=== PATIENT | female | born 1945 | race Caucasian/White ===

== ENCOUNTER 2017-04-30 20:35 | Emergency (ER) | payer MEDICARE, OTHER ==
[~2017-04-30] VITALS: Ht 165.1 cm; Wt 122.5 kg
[~2017-04-30 20:35] MED LIST: AMOX500C2 PO; AZITTAB6 PO; HYDR-2551 PO; HYDR12.56 PO; PRED-188 PO; TELM40TA11 PO
[2017-05-01 00:50] LABS: Basophils # (auto) 0 uL; Basophils % (auto) 0.2 % (0.0-2.0); CONDITION Y; Eosinophils # (auto) 0.1 uL; Eosinophils % (auto) 0.8 % (0.0-7.0); Hematocrit 42.2 % (36.0-46.0); Hemoglobin 13.8 g/dL (12.2-16.2); Lymphocytes # (auto) 3.2 uL; Lymphocytes % (auto) 25.7 % (10.0-50.0); Mean Corpuscular Hemoglobin 27.2 pg (28.0-32.0); Mean Corpuscular Hgb Conc. 32.8 g/dL (32.0-36.0); Mean Platelet Volume 9.1 fL (7.4-10.4); Monocytes # (auto) 0.8 uL; Monocytes % (auto) 6.2 % (0.0-12.0); Neutrophils # (auto) 8.3 uL; Neutrophils % (auto) 67.1 % (37.0-80.0); Platelet Count (auto) 396 10^3/uL (140-450); Red Cell Distribution Width 16.5 % (11.6-16.0); White Blood Cell 12.4 10^3/uL (4.4-10.8)
[2017-05-01 01:33] LABS: Urine Bilirubin Negative (Negative); Urine Blood Negative /uL (Negative); Urine Color Yellow (Yellow); Urine Glucose Normal (Normal); Urine Ketone Negative (Negative); Urine Mucus FEW (None Seen); Urine Nitrite Negative (Negative); Urine RBC 11 /hpf (0 - 4); Urine Squamous Epithelial Cell FEW /hpf (<5); Urine Urobilinogen Normal (Negative)
[2017-05-01] MEDS ORDERED: metroNIDAZOLE 500 MG TAB PO ONE (02:30)
[2017-05-01] MEDS ORDERED: FAMOTIDINE (10MG/ML) 2ML VL IV ONE (02:30)
[2017-05-01] MEDS ORDERED: ONDANSETRON HCL 4 MG/2 ML VIAL IV ONE (02:30)
[2017-05-01 02:40] VITALS: BP 131/60
[2017-05-01 03:01] LABS: Albumin 3.5 g/dL (3.4-5.0); Alkaline Phosphatase 95 U/L (45-117); Anion Gap 9 (5-15); Aspartate Aminotransferase 24 U/L (15-37); BUN/Creatinine Ratio 23.8; Bilirubin, Total 0.4 mg/dL (0.2-1.0); Blood Urea Nitrogen 19 mg/dL (7-18); Calcium 8.8 mg/dL (8.5-10.1); Carbon Dioxide 29 mmol/L (21-32); Chloride 102 mmol/L (98-107); GFR African American 91 mL/min; GFR Non-African American 75 mL/min; Glucose 102 mg/dL (74-106); Potassium 3.5 mmol/L (3.5-5.1); Sodium 140 mmol/L (136-145); Total Protein 8.1 g/dL (6.4-8.2)
== END 2017-05-01 04:25 | disposition home or self-care (01) ==
LOC: ER 20:38
DX: K25.9 Gastric ulcer, unspecified as acute or chronic, without hemorrhage or perforation (principal); B96.81 Helicobacter pylori [H. pylori] as the cause of diseases classified elsewhere; I10 Essential (primary) hypertension; Z90.49 Acquired absence of other specified parts of digestive tract; Z88.1 Allergy status to other antibiotic agents; Z88.6 Allergy status to analgesic agent
CPT/HCPCS: 36415; 74176; 80053; 81001; 84484; 85025; 86677; 96374; 96375; 99285; J2405; J3490

== ENCOUNTER 2021-10-02 15:17 | Emergency (ER) | payer MEDICARE, OTHER ==
[~2021-10-02] VITALS: Ht 165.1 cm; Wt 104.3 kg
[2021-10-02] MEDS ORDERED: PROMETHAZINE HCL 25 MG/ML 1ML IM ONE (16:00)
[2021-10-02] MEDS ORDERED: MEPERIDINE HCL (50 MG/ML) 1 ML VIAL IM ONE (16:00)
[2021-10-02] MEDS ORDERED: PRED20TA2 PO (17:09)
[2021-10-02] MEDS ORDERED: HYDR-4902 PO (17:10)
[2021-10-02 17:20] VITALS: BP 153/57
== END 2021-10-02 17:21 | disposition home or self-care (01) ==
LOC: ER 15:17
DX: M48.061 Spinal stenosis, lumbar region without neurogenic claudication (principal); M54.16 Radiculopathy, lumbar region; G89.29 Other chronic pain; M54.50 Low back pain, unspecified; I10 Essential (primary) hypertension; K21.9 Gastro-esophageal reflux disease without esophagitis; Z79.2 Long term (current) use of antibiotics; Z79.899 Other long term (current) drug therapy; Z88.1 Allergy status to other antibiotic agents; Z88.5 Allergy status to narcotic agent
CPT/HCPCS: 72131; 96372; 99284; J2175; J2550

== ENCOUNTER 2024-03-16 11:54 | Inpatient (IN) | payer MEDICARE, OTHER ==
[~2024-03-16] VITALS: Ht 165.1 cm; Wt 113.0 kg
[~2024-03-16 11:54] MED LIST changes: +HYDR-4902 PO; -HYDR12.56 PO; +HYDR12.59 PO; +PRED20TA2 PO
[2024-03-16] MEDS: SODIUM CHLORIDE 0.9% 1,000 ML IV ONE ×2 (13:25→14:38)
[2024-03-16 13:31] LABS: Basophils # (auto) 0.1 10 ^3/uL (0-0.2); Basophils % (auto) 0.8 % (0.0-2.0); Eosinophils # (auto) 0 10 ^3/uL (0-0.8); Eosinophils % (auto) 0.4 % (0.0-7.0); Hematocrit 42.9 % (36.0-46.0); Lymphocytes # (auto) 1.7 10 ^3/uL (0.4-5.4); Lymphocytes % (auto) 17.2 % (10.0-50.0); Mean Corpuscular Hemoglobin 27.4 pg (28.0-32.0); Mean Corpuscular Hgb Conc. 32.5 g/dL (32.0-36.0); Mean Corpuscular Volume 84.1 fL (80.0-100.0); Monocytes # (auto) 0.5 10 ^3/uL (0-1.3); Monocytes % (auto) 5.2 % (0.0-12.0); Neutrophils # (auto) 7.7 10 ^3/uL (1.6-8.6); Neutrophils % (auto) 76.4 % (37.0-80.0); Nucleated Red Blood Cells % 0.1 %; Red Cell Distribution Width 15.7 % (11.8-14.3); White Blood Cell 10.1 10^3/uL (4.4-10.8)
[2024-03-16 13:48] VITALS: PULSE 75; RESP 20; O2SAT 95
[2024-03-16 13:53] LABS: Alanine Aminotransferase 24 U/L (7-40); Albumin 4.4 g/dL (3.2-4.8); Alkaline Phosphatase 127 U/L (46-116); Anion Gap 6 (5-15); Aspartate Aminotransferase 28 U/L (13-40); BUN/Creatinine Ratio 18.1 (10.0-20.0); Blood Urea Nitrogen 25 mg/dL (9-23); Calcium 10.4 mg/dL (8.7-10.4); Carbon Dioxide 29 mmol/L (20-30); Chloride 89 mmol/L (98-107); Sodium 124 mmol/L (136-145)
[2024-03-16 13:54] LABS: Bilirubin, Total 0.7 mg/dL (0.2-1.0); Total Protein 7.7 g/dL (5.7-8.2)
[2024-03-16 14:00] LABS: Glucose 627 mg/dL (74-106); Potassium 5.8 mmol/L (3.5-5.1)
[2024-03-16] MEDS ORDERED: InsuLIN REG 1unit/0.01ml Soln (100units/ml) SC ONE (14:30)
[2024-03-16] MEDS: InsuLIN REG 1unit/0.01ml Soln (100units/ml) IV ONE (14:54)
[2024-03-16 16:03] VITALS: PULSE 75; RESP 20; O2SAT 95
[2024-03-16] MEDS ORDERED: DEXTROSE (50%) 50ML SYRG IV PRN (18:15)
[2024-03-16] MEDS ORDERED: ONDANSETRON HCL 4 MG/2 ML VIAL IV PRN (18:15)
[2024-03-16] MEDS: CALCIUM GLUC 1,000mg/50ml-NS 50 ML IV ONE (18:45)
[2024-03-16] MEDS: SODIUM BICARB 8.4% 50Meq/50ml SYR Vial IV ONE (18:54)
[2024-03-16] MEDS: SODIUM ZIRCONIUM CYCL 10 GM PAK PO ONE (18:55)
[2024-03-16 19:30] VITALS: PULSE 84; RESP 25; O2SAT 94
[2024-03-16] MEDS: ACCU-CHEK COMFORT CURVE STRIP VI SCH (20:00)
[2024-03-16] MEDS: InsuLIN REG 1unit/0.01ml Soln (100units/ml) SC SCH (20:00)
[2024-03-16] MEDS: SOD CHL 0.45% 1,000 ML IV SCH (21:15)
[2024-03-16] MEDS: SODIUM CHLORIDE 0.9% 500 ML IV ONE (21:35)
[2024-03-16 22:58] VITALS: BP 149/70; PULSE 78; RESP 17; TEMP 98.4; O2SAT 94
[2024-03-16] MEDS ORDERED: HYDR25TA4 PO (23:08)
[2024-03-16] MEDS ORDERED: MONT-8 PO (23:08)
[2024-03-16] MEDS ORDERED: METF-370 PO (23:08)
[2024-03-16] MEDS ORDERED: TRAM50TA2 PO (23:08)
[2024-03-16] MEDS ORDERED: EZET10TA22 PO (23:08)
[2024-03-16] MEDS: MONTELUKAST SODIUM 10 MG TAB PO SCH (23:27)
[2024-03-17] VITALS (7 sets, daily range): BP systolic 101–155; BP diastolic 29–74; PULSE 69–78; RESP 18; TEMP 98–98.3; O2SAT 94–96
[2024-03-17 06:32] LABS: Anion Gap 8 (5-15); Carbon Dioxide 29 mmol/L (20-30); Chloride 97 mmol/L (98-107); Potassium 3.6 mmol/L (3.5-5.1)
[2024-03-17 06:34] LABS: Calcium 9.5 mg/dL (8.7-10.4)
[2024-03-17 06:38] LABS: Glucose 97 mg/dL (74-106)
[2024-03-17 06:39] LABS: BUN/Creatinine Ratio 26.5 (10.0-20.0); Blood Urea Nitrogen 26 mg/dL (9-23)
[2024-03-17 06:52] LABS: Sodium 134 mmol/L (136-145)
[2024-03-17] MEDS ORDERED: LOSARTAN POTASSIUM 50 MG TAB PO SCH (10:00)
[2024-03-17] MEDS: EMPAGLIFLOZIN 10 MG TAB PO SCH (12:18)
[2024-03-17 14:30] LABS: Urine Bacteria MOD /hpf (None Seen); Urine Blood Negative /uL (Negative); Urine Clarity Clear (Clear); Urine Color Light-Yellow (Yellow); Urine Protein, UAD Negative (Negative); Urine Urobilinogen Normal (Negative); Urine WBC 1 /hpf (0 - 5)
[2024-03-17] MEDS: VALSARTAN 80 MG TAB PO ONE (14:54)
[2024-03-17] MEDS: metFORMIN HYDROCHLORIDE 500 MG TAB PO ONE (14:55)
[2024-03-17] MEDS: hydroCHLOROthiazide 25 MG TAB PO ONE (14:56)
[2024-03-17 16:46] LABS: Chloride 95 mmol/L (98-107); Sodium 130 mmol/L (136-145)
[2024-03-17 16:47] LABS: Anion Gap 8 (5-15); Carbon Dioxide 27 mmol/L (20-30)
[2024-03-17 16:48] LABS: Calcium 9.3 mg/dL (8.7-10.4)
[2024-03-17 16:52] LABS: BUN/Creatinine Ratio 21.6 (10.0-20.0); Blood Urea Nitrogen 22 mg/dL (9-23)
[2024-03-17 17:09] LABS: Glucose 323 mg/dL (74-106)
[2024-03-18] VITALS (7 sets, daily range): BP systolic 114–128; BP diastolic 33–58; PULSE 64–77; RESP 18–20; TEMP 97.7–98.8; O2SAT 93–97
[2024-03-18] MEDS: traMADol HCL 50 MG TAB PO PRN (01:45)
[2024-03-18 06:14] LABS: Anion Gap 12 (5-15); Carbon Dioxide 24 mmol/L (20-30); Chloride 97 mmol/L (98-107); Potassium 3.4 mmol/L (3.5-5.1); Sodium 133 mmol/L (136-145)
[2024-03-18 06:20] LABS: BUN/Creatinine Ratio 18.8 (10.0-20.0); Blood Urea Nitrogen 19 mg/dL (9-23); Glucose 162 mg/dL (74-106)
[2024-03-18] MEDS: metFORMIN HYDROCHLORIDE 500 MG TAB PO SCH (09:10)
[2024-03-18] MEDS: VALSARTAN 80 MG TAB PO SCH (09:19)
[2024-03-18] MEDS ORDERED: hydroCHLOROthiazide 25 MG TAB PO SCH (10:00)
[2024-03-18] MEDS ORDERED: DEXTROSE (50%) 50ML SYRG IV PRN (11:45)
[2024-03-18] MEDS: InsuLIN REG 1unit/0.01ml Soln (100units/ml) SC SCH ×3 (13:05→22:04)
[2024-03-18] MEDS: ACCU-CHEK COMFORT CURVE STRIP VI SCH (13:05)
[2024-03-19] VITALS (7 sets, daily range): BP systolic 109–135; BP diastolic 35–59; PULSE 63–80; RESP 16–19; TEMP 97.6–98.2; O2SAT 93–97
[2024-03-19 11:46] LABS: Calcium 9.3 mg/dL (8.7-10.4); Chloride 97 mmol/L (98-107); Potassium 4.2 mmol/L (3.5-5.1); Sodium 131 mmol/L (136-145)
[2024-03-19 11:47] LABS: Anion Gap 6 (5-15); Carbon Dioxide 28 mmol/L (20-30)
[2024-03-19 11:52] LABS: BUN/Creatinine Ratio 19.3 (10.0-20.0); Blood Urea Nitrogen 22 mg/dL (9-23); Glucose 317 mg/dL (74-106)
[2024-03-19] MEDS: DOCUSATE SOD 100 MG CAP PO PRN (22:51)
[2024-03-20] VITALS (8 sets, daily range): BP systolic 109–151; BP diastolic 40–65; PULSE 74–88; RESP 14–20; TEMP 97.8–98.8; O2SAT 93–98
[2024-03-20 05:12] LABS: Anion Gap 7 (5-15); Carbon Dioxide 27 mmol/L (20-30); Chloride 101 mmol/L (98-107); Potassium 3.8 mmol/L (3.5-5.1); Sodium 135 mmol/L (136-145)
[2024-03-20 05:13] LABS: Calcium 9.3 mg/dL (8.7-10.4)
[2024-03-20 05:18] LABS: BUN/Creatinine Ratio 21.7 (10.0-20.0); Blood Urea Nitrogen 23 mg/dL (9-23); Glucose 210 mg/dL (74-106)
[2024-03-21] VITALS (8 sets, daily range): BP systolic 123–146; BP diastolic 42–70; PULSE 71–86; RESP 19–24; TEMP 97.9–98.7; O2SAT 94–98
[2024-03-22 01:00] VITALS: BP 143/53; PULSE 66; RESP 20; TEMP 97.9; O2SAT 93
[2024-03-22 05:00] VITALS: BP 132/67; PULSE 81; RESP 20; TEMP 97.8; O2SAT 97
[2024-03-22 08:00] VITALS: PULSE 72; RESP 20; O2SAT 94
[2024-03-22 08:39] VITALS: BP 110/28; PULSE 72; RESP 20; TEMP 97.9; O2SAT 94
[2024-03-22] MEDS ORDERED: EMPA1TAB PO (10:24)
[2024-03-22] MEDS ORDERED: METF-490 PO (10:24)
[2024-03-22] MEDS: hydroCHLOROthiazide 25 MG TAB PO SCH (11:00)
[2024-03-22 12:34] VITALS: BP 131/61; PULSE 75; RESP 18; TEMP 98.3; O2SAT 95
[2024-03-22 15:28] VITALS: BP 114/64; TEMP 36.8
== END 2024-03-22 16:20 | disposition home health service (06) | DRG 637 ==
LOC: ER 11:54 → OVERFLOW 18:16 → WEST WING 22:33
PROVIDERS: ADMIT Nurse Practitioner; ATTEND Family Medicine
DX: E11.10 Type 2 diabetes mellitus with ketoacidosis without coma (principal); N17.0 Acute kidney failure with tubular necrosis; E87.1 Hypo-osmolality and hyponatremia; Z68.41 Body mass index [BMI] 40.0-44.9, adult; E86.9 Volume depletion, unspecified; E87.5 Hyperkalemia; I10 Essential (primary) hypertension; E86.0 Dehydration; K21.9 Gastro-esophageal reflux disease without esophagitis; E78.5 Hyperlipidemia, unspecified; E66.01 Morbid (severe) obesity due to excess calories; Z79.899 Other long term (current) drug therapy; Z79.4 Long term (current) use of insulin; Z91.199 Patient's noncompliance with other medical treatment and regimen due to unspecified reason
CPT/HCPCS: 36415; 36600; 80048; 80053; 81001; 82010; 82805; 82962; 83036; 83605; 84132; 84484; 85025; 96361; 96365; 96375; 97110; 97163; G0378; J1815

== ENCOUNTER 2024-12-05 23:53 | Emergency (ER) | payer MEDICARE, OTHER ==
[~2024-12-05] VITALS: Ht 165.1 cm; Wt 101.1 kg
[~2024-12-05 23:53] MED LIST changes: -AMOX500C2 PO; -AZITTAB6 PO; +EMPA1TAB PO; +EZET10TA22 PO; -HYDR-2551 PO; -HYDR-4902 PO; -HYDR12.59 PO; +HYDR25TA4 PO; +METF-370 PO; +METF-490 PO; +MONT-8 PO; -PRED-188 PO; -PRED20TA2 PO; +TRAM50TA2 PO
[2024-12-06] MEDS: HYDROcodone-ACET 10/325MG TAB PO ONE (01:00)
[2024-12-06] MEDS ORDERED: CEPH500C PO (01:09)
[2024-12-06] MEDS ORDERED: ACET500T58 PO (01:09)
--- NOTE | 2024-12-06 01:09 | ED.PDOC ---
History of Present Illness(SKN HPI Comments 79-YEAR-OLD FEMALE PRESENTS TO ER FOR WOUND CHECK. PATIENT PRESENTS TO ER WITH A 1 CM X 1 CM PARTIAL SKIN AVULSION TO RIGHT THUMB THAT SHE STATES OCCURRED AT 4:00 P.M. PRIOR TO ARRIVAL TO ER S/P HER RIGHT THUMB MAKING IMPACT WITH A VEGETABLE SLICER AT HOME AND PRESENTS TO ER TODAY FOR WOUND CHECK. SHE RATES HER CURRENT PAIN A 10/10 TO RIGHT THUMB WITHOUT RADIATION. DENIES USE OF MEDICATIONS FOR CURRENT SYMPTOMS AND STATES HE IS UNSURE WHEN HER LAST TETANUS SHOT WAS. DENIES NUMBNESS/TINGLING OR ANY FURTHER SYMPTOMS/COMPLAINTS Chief Complaint: Laceration Time Seen by MD: 00:16 Primary Care Provider: VALENTIN History of Present Illness: Nurses Notes, Medications, Allergies Allergies: Coded Allergies: Clindamycin (Verified Allergy, Mild, 02/10/10) Codeine (Verified Allergy, Unknown, 04/30/17) Home Meds Active Scripts Cephalexin Monohydrate (Cephalexin) 500 Mg Cap, 1 CAP PO BID for 7 Days, #14 CAP 0 Refills Prov:KIMBERLYN STANFORD 12/06/24 Acetaminophen (Acetaminophen) 500 Mg Tab, 500 MG PO Q4HPRN, #30 TAB 0 Refills Prov:KIMBERLYN STANFORD 12/06/24 Empagliflozin (Jardiance) 10 Mg Tab, 10 MG PO DAILY, #90 TAB Prov:LEVAR BLANCO MD 03/22/24 Metformin Hydrochloride (METFORMIN HCL ER) 1,000 Mg Tab, 1 TAB PO BID, #180 TAB 1 Refill Prov:LEVAR BLANCO MD 03/22/24 Reported Medications Ezetimibe (Zetia) 10 Mg Tab, 1 TAB PO DAILY, #30 TAB 5 Refills 03/16/24 Montelukast Sodium (MONTELUKAST SODIUM) 10 Mg Tab, 1 TAB PO DAILY, #30 TAB 5 Refills 03/16/24 Metformin Hydrochloride (Metformin Hcl) 500 Mg Tab, 1 TAB PO BID, #60 TAB 3 Refills 03/16/24 Tramadol Hcl (Tramadol Hcl) 50 Mg Tab, 50 MG PO PRN for PAIN SCALE 1 THRU 6, TAB 03/16/24 Hydrochlorothiazide (Hydrochlorothiazide) 25 Mg Tab, 1 TAB PO DAILY, #30 TAB 5 Refills 03/16/24 Telmisartan (Micardis) 40 Mg Tab, 40 MG PO DAILY, TAB 10/03/13 Information Source: Patient Mode of Arrival: Wheelchair Tetanus: Unknown Past Medical History PAST MEDICAL HISTORY: Arthritis, GERD, HTN Past Medical History (Other): ESSENTIAL TREMORS Surgical History: Cholecystectomy STRUCTURER History: No Pertinent STRUCTURER History Family History Family History (Other): Familial tremors Social History Smoker: Non-Smoker Alcohol: Denies ETOH Use Drugs: Denies Drug Use Lives In: Home Constitutional: denies: chills, diaphoresis, fatigue, fever, malaise, sweats, weakness, others EENTM: denies: blurred vision, double vision, ear bleeding, ear discharge, ear drainage, ear pain, ear ringing, eye pain, eye redness, hearing loss, mouth pain, mouth swelling, nasal discharge, nose bleeding, nose congestion, nose pain, photophobia, tearing, throat pain, throat swelling, voice changes, others Respiratory: denies: cough, hemoptysis, orthopnea, SOB at rest, shortness of breath, SOB with excertion, stridor, wheezing, others Cardiovascular: denies: chest pain, dizzy spells, diaphoresis, Dyspnea on exertion, edema, irregular heart beat, left arm pain, lightheadedness, palpitations, PND, syncope, others Gastrointestinal: denies: abdomen distended, abdominal pain, blood streaked bowels, constipated, diarrhea, dysphagia, difficulty swallowing, hematemesis, melena, nausea, poor appetite, poor fluid intake, rectal bleeding, rectal pain, vomiting, others Genitourinary: denies: abnormal vagina bleeding, burning, dyspareunia, dysuria, flank pain, frequency, hematuria, incontinence, pain, , vagina discharge, urgency, others Neurological: denies: dizziness, fainting, headache, left sided numbness, left sided weakness, numbness, paresthesia, pre-existing deficit, right sided numbness, right sided weakness, seizure, speech problems, tingling, tremors, weakness, others Musculoskeletal: denies: back pain, gout, joint pain, joint swelling, muscle pain, muscle stiffness, neck pain, others Integumetry: reports: others ( IN HPI) Allergic/Immunocompromised: denies: Difficulty Healing, Frequent Infections, Hives, Itching, others Hematologic/Lymphatic: denies: anemia, blood clots, easy bleeding, easy bruising, swollen glands, others Endocrine: denies: excessive hunger, excessive sweating, excessive thirst, excessive urination, flushing, intolerance to cold, intolerance to heat, unexplained weight gain, unexplained weight loss, others Psychiatric: denies: anxiety, bipolar disorder, depression, hopeless, panic disorder, schizophrenia, sleepless, suicidal, others Physical Exam General Appearance: No Apparent Distress, Obese HEENT: PERRL/EOMI Neck: Full Range of Motion, Non-Tender, Normal Respiratory: Chest Non-Tender, Lungs Clear, No Accessory Muscle Use, No Respiratory Distress, Normal Breath Sounds Cardiovascular: No Murmur, No Gallop, Regular Rate/Rhythm Breast Exam: Deferred Gastrointestinal: NOT DONE Genitalia: Deferred Pelvic: Deferred Rectal: Deferred Extremities: Normal capillary refill, Normal range of motion Neurologic: Alert, No Motor Deficits, Normal Affect, Normal Mood, No Sensory Deficits Cerebellar Function: Other (ESSENTIAL TREMORS NOTED) Reflexes: Normal Skin: Dry, Warm Peripheral Pulses: 2+ Radial (R), 2+ Radial (L), 2+ Brachial (R), 2+ Brachial (L) Lymphatic: No Adenopathy Was a procedure done? Was a procedure done?: No Sedation Sedation?: No Images 1 - 1 CM X 1 CM PARTIAL SKIN AVULSION NOTED TO PALMAR SURFACE OF RIGHT THUMB. MILD BLEEDING NOTED. NO TENDON EXPOSURE/NAILBED INJURY/FURTHER SKIN CHANGES NOTED. NO BONY TENDERNESS APPRECIATED. PATIENT ABLE TO FULLY MOVE ALL FINGERS RIGHT HAND. PULSES INTACT Differential Diagnosis (INTG) Differential Diagnosis: Abrasion, Laceration Differential Diagnosis: Puncture Wound, Retained Foreign Body, Other (Neurovascular injury) X-Ray, Labs, Meds, VS Vital Signs Date Time Temp Pulse Resp B/P (MAP) Pulse Ox O2 Delivery O2 Flow Rate FiO2 12/06/24 00:18 98.8 85 16 184/67 (106) 95 98.8 Current Medications Medications (Trade) Dose Ordered Sig/Dixie Route Start Time Stop Time Status Last Admin Acetaminophen/ Hydrocodone Bitart (Brandon 10/325MG Tab) 1 tab ONCE ONCE PO 12/06/24 01:00 12/06/24 01:01 DC 12/06/24 01:00 Diphtheria/ Tetanus/Acell Pertussis (Boostrix T-Dap) 0.5 ml ONCE ONCE IM 12/06/24 01:15 12/06/24 01:16 DC 12/06/24 01:19 NORCO 10/325 MG P.O. ORDERED TDAP 0.5 ML IM ORDERED BLEEDING WAS CONTROLLED PRIOR TO DISCHARGE AND NON-ADHERENT DRESSING WAS APPLIED WOUND CARE/CLEANING DISCUSSED AND ADVISED ADVISED TO FOLLOW UP IN TWO DAYS FOR WOUND CHECK ADVISED TO FOLLOW UP WITH PCP IN 1-2 DAYS PATIENT VERBALIZED UNDERSTANDING AND AGREEABLE WITH CURRENT PLAN OF CARE ADVISED TO RETURN TO ER IMMEDIATELY IF SYMPTOMS WORSEN Time of 1ST Reevaluation: 00:44 Reevaluation 1ST: N/A Patient Education/Counseling: Diagnosis, Treatment, Prognosis, Need For Follow Up Family Education/Counseling: No Family Present Departure 1 Departure Time of Disposition: 01:02 Impression: Primary Impression: Avulsion of skin of finger without complication Qualified Codes: S61.209A - Unspecified open wound of unspecified finger without damage to nail, initial encounter Disposition: HOME / SELF CARE / HOMELESS Condition: Stable e-Prescriptions Cephalexin Monohydrate (Cephalexin) 500 Mg Cap 1 CAP PO BID for 7 Days, #14 CAP 0 Refills Prov: KIMBERLYN STANFORD 12/06/24 Acetaminophen (Acetaminophen) 500 Mg Tab 500 MG PO Q4HPRN, #30 TAB 0 Refills Prov: KIMBERLYN STANFORD 12/06/24 Discharged With: Significant Other Critical Care Note Critical Care Time?: No Stability Stability form required: No Heart Score Heart Score: Heart Score Response (Comments) Value History N/A 0 EKG N/A 0 Age N/A 0 Risk Factors N/A 0 Troponin N/A 0 Total 0 KIMBERLYN STANFORD Dec 06, 2024 01:09
[2024-12-06] MEDS: TETANUS-DIPTH-ACEL PERTUSSIS 0.5ML SYR Tdap IM ONE (01:19)
[2024-12-06 01:28] VITALS: BP 166/72; PULSE 85; RESP 16; TEMP 98.8; O2SAT 95
== END 2024-12-06 01:28 | disposition home or self-care (01) ==
LOC: ER 23:53
DX: S61.031A Puncture wound without foreign body of right thumb without damage to nail, initial encounter (principal); I10 Essential (primary) hypertension; K21.9 Gastro-esophageal reflux disease without esophagitis; M19.90 Unspecified osteoarthritis, unspecified site; Z79.84 Long term (current) use of oral hypoglycemic drugs; Z79.899 Other long term (current) drug therapy; Z90.49 Acquired absence of other specified parts of digestive tract; Z88.1 Allergy status to other antibiotic agents; Z88.5 Allergy status to narcotic agent; Z23 Encounter for immunization; W26.8XXA Contact with other sharp object(s), not elsewhere classified, initial encounter; Y93.89 Activity, other specified; Y92.89 Other specified places as the place of occurrence of the external cause; Y99.8 Other external cause status
CPT/HCPCS: 90471; 90715